=== PATIENT | male | born 1985 | race Caucasian/White ===

== ENCOUNTER 2017-08-12 08:33 | Emergency (ER) | payer OTHER ==
[2017-08-12 08:44] VITALS: BP 117/76
--- NOTE | 2017-08-12 08:59 | UC ---
Throat Pain/Nasal Srinivasan HPI - HPI Summary HPI Summary: Chest and throat congestion and cough has been going on for over 1 week - History of Current Complaint Chief Complaint: UCRespiratory Stated Complaint: CHEST CONGESTION, AND COUGH Time Seen by Provider: 08/12/17 08:52 Hx Obtained From: Patient Onset/Duration: Sudden Onset, Lasting Weeks - >1, Still Present Severity: Moderate Cough: Nonproductive - Allergies/Home Medications Allergies/Adverse Reactions: Allergies Allergy/AdvReac Type Severity Reaction Status Date / Time No Known Allergies Allergy Verified 08/12/17 08:44 Home Medications: Home Medications Pseudoephedrine HCl [Sudafed 12 Hour] 120 mg PO 08/12/17 [History] PMH/Surg Hx/FS Hx/Imm Hx Previously Healthy: Yes - Surgical History Surgical History: None - Family History Known Family History: Positive: None - Social History Occupation: Employed Full-time - D[employer] value [employer] at [employer] Lives: With Family Alcohol Use: Occasionally Substance Use Type: None Smoking Status (MU): Never Smoked Tobacco Review of Systems Constitutional: Negative Skin: Negative Eyes: Negative ENT: Negative, Sore Throat Respiratory: Cough Cardiovascular: Other - right upper lung pain Gastrointestinal: Negative Genitourinary: Negative Motor: Negative Neurovascular: Negative Musculoskeletal: Negative Neurological: Negative Psychological: Negative Is Patient Immunocompromised?: No All Other Systems Reviewed And Are Negative: Yes Physical Exam Triage Information Reviewed: Yes Appearance: Well-Appearing, No Pain Distress, Well-Nourished Vital Signs: Initial Vital Signs Temp 98.2 F 08/12/17 08:41 Pulse 68 08/12/17 08:41 Resp 18 08/12/17 08:41 BP 117/76 08/12/17 08:41 Pulse Ox 99 08/12/17 08:41 Vital Signs Reviewed: Yes Eye Exam: Normal Eyes: Positive: Conjunctiva Clear ENT Exam: Normal ENT: Positive: Normal ENT inspection, Hearing grossly normal, Pharynx normal, TMs normal, Uvula midline. Negative: Nasal congestion, Nasal drainage, Tonsillar swelling, Tonsillar exudate, Trismus, Muffled voice, Hoarse voice, Dental tenderness, Sinus tenderness Dental Exam: Normal Neck exam: Normal Neck: Positive: Supple, Nontender, No Lymphadenopathy Respiratory Exam: Normal Respiratory: Positive: Chest non-tender, Lungs clear, Normal breath sounds, No respiratory distress, No accessory muscle use Cardiovascular Exam: Normal Cardiovascular: Positive: RRR, No Murmur, Pulses Normal, Brisk Capillary Refill Musculoskeletal Exam: Normal Musculoskeletal: Positive: Strength Intact, ROM Intact, No Edema Neurological Exam: Normal Neurological: Positive: Alert, Muscle Tone Normal Psychological Exam: Normal Skin Exam: Normal Diagnostics - Radiology No standard instances Xray Interpretation: No Acute Changes Radiology Interpretation Completed By: ED Physician, Radiologist Throat Pain/Nasal Course/Dx - Course Assessment/Plan: Increase fluids, rest tylenol, ibuprofen, zithromax, tessalon follow with pcp prn - Differential Dx/Diagnosis Provider Diagnoses: Bronchitis Discharge - Discharge Plan Condition: Stable Disposition: HOME Prescriptions: Azithromycin TAB* [Zithromax TAB (Z-SHAILESH) 250 mg #6 tabs] 2 tab PO .TODAY, THEN 1 DAILY #1 shailesh Benzonatate [TESSALON 200 MG CAP] 200 mg PO TID PRN #40 cap PRN Reason: cough Patient Education Materials: Ibuprofen (By mouth), Guaifenesin (By mouth), Acute Bronchitis (ED) Referrals: [facility] [Outside] - If Needed
--- NOTE | 2017-08-12 09:46 | RAD ---
Indication: Chest pain with inspiration. 2 views of the chest including dual energy PA views were obtained. No mediastinal shift is noted. Heart is of normal size and configuration. Lung colunga appear clear. IMPRESSION: No active cardiopulmonary disease is noted.
== END 2017-08-12 10:12 | disposition home or self-care (01) ==
LOC: UCEAST 08:33
DX: J40 Bronchitis, not specified as acute or chronic (principal)
CPT/HCPCS: 71046; 99202; G0463